=== PATIENT | male | born 1990 | race Caucasian/White ===

== ENCOUNTER 2021-01-02 12:01 | Emergency (ER) | payer BC ==
[~2021-01-02] VITALS: Ht 185.4 cm; Wt 78.0 kg
--- NOTE | ~2021-01-02 | EMS ---
[facility] [address] [place] [address] EMS Patient Care Report Name: SAVANNA MOSES Room #: DEP ETELVINA Tineo#: [id number] Admission: 01/02/21 Attend Phys: Discharge: 01/02/21 Date of : [birth year] Report #: [id number] THIS REPORT FOR: //name// Report Transmitted: 01/02/2021 20:30 EMS Care Summary [facility] MED-ACT Incident [id number] @ 01/02/2021 11:16 Incident Location [address] [place] [address] Patient SAVANNA MOSES Male, 30 Years 1990 Patient Address [address] [place] [address] Patient History Bipolar II Disorder, Patient Allergies No known allergies, Patient Medications None Reported, Chief Complaint "He had a seizure" per bystander Disposition Transported No Lights/[place] Reason Convulsions/Seizure Transported To [facility] Narrative M1133 responds C3 to report of possible seizure at a local psychiatrist's office. After unremarkable response phase, 1133 enters scene to find one pt, A&O, seated w/ [facility] personnel at his side. Pt's psychiatrist reports that the pt [facility] [address] [place] [address] EMS Patient Care Report Name: SAVANNA MOSES Room #: DEP ETELVINA Tineo#: [id number] Admission: 01/02/21 Attend Phys: Discharge: 01/02/21 Date of : [birth year] Report #: [id number] was at his office to undergo "TMS Mapping- Transcranial Magnetic Stimulation" for his hx of mental health issues. Staff state that they were stimulating a certain portion of the pt's brain and were noticing the expected movements of the pt's thumb. They state that the pt then reported that he was light-headed, and proceeded to become unconscious and seize. Staff report full body seizure activity for approximately one minute before the pt regained consciousness, with little to no postictal period. Pt reports no hx of seizure disorder and denies pain of any kind. Pt is found to initially be slightly bradycardic and slightly hypotensive. Pt reports no hx of vasovagal episodes at the dentist or with pain. Pt denies hx of diabetes and denies use of drugs or alcohol. Pt states that he feels better now, but is still slightly weak. Pt requests transport to [facility] which is executed without incident. M1133 clears and returns to service. 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 [address] [place] [address] EMS Patient Care Report Name: SAVANNA MOSES Room #: DEP Noman#: [id number] Admission: 01/02/21 Attend Phys: Discharge: 01/02/21 Date of : [birth year] Report #: [id number] 11:48,Depart Scene 11:51,BP: / M,PULSE: 45,RR: R,SPO2: 100 Ox,ETCO2: ,BG: ,PAIN: ,GCS: , 11:54,BP: 132/89 M,PULSE: 54,RR: R,SPO2: 100 Ox,ETCO2: ,BG: ,PAIN: ,GCS: , 11:55,At Destination 12:12,Call Closed Disclaimer v1.1 Copyright 2020 [employer] This EMS Care Summary contains data elements from the applicable legal record (which may be displayed differently). It is designed to provide pertinent information for the following purposes: continuity of care, clinical quality, and state data reporting. The complete legal record is available to ED staff and administrators of the receiving hospital in [employer]'s Patient Tracker. All data is provided "as is."
[2021-01-02 13:07] LABS: CALCIUM 9.4 mg/dL (8.5-10.1); CREATININE 1.1 mg/dL (0.7-1.3); POTASSIUM 4.7 mmol/L (3.5-5.1)
[2021-01-02 13:40] LABS: ABSOLUTE NEUTROPHILS 1.6 thou/uL (1.4-8.2); BASOPHILS 1.8 % (0.0-2.0); EOSINOPHILS 4.5 % (0.0-3.0); HEMATOCRIT 45.2 % (42.0-52.0); HEMOGLOBIN 15.5 gm/dL (14.0-18.0); LYMPHOCYTES 42.8 % (24.0-44.0); MCH 33.7 pg (26.0-34.0); MCHC 34.4 g/dL (28.0-37.0); MCV 98.2 fL (80.0-100.0); MONOCYTES 9.3 % (1.0-8.0); PLATELET COUNT 196 thou/uL (150-400); POLYS 41.6 % (36.0-66.0); RDW 12.4 % (10.5-14.5)
--- NOTE | 2021-01-02 13:40 | EKG ---
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 : 1990 Requested By: Kj Monson Order Number: [id number] MD: Hemanth Godinez Measurements Intervals [place] Rate: 52 P: 32 CO: 172 QRS: 54 QRSD: 98 T: 34 QT: 435 QTc: 405 Interpretive Statements Sinus rhythm RSR' in V1 or V2, probably normal variant ST elev, probable normal early repol pattern No previous ECG available for comparison Electronically Signed On 01-02-2021 13:39:48 CDT by Hemanth Godinez [email or web address] <ELECTRONICALLY SIGNED> By: Hemanth Godinez MD, [facility] 01/02/21 1339 1209 1209 Hemanth Godinez MD, FACC /EPI
[2021-01-02 14:10] VITALS: BP 122/62
== END 2021-01-02 14:11 | disposition home or self-care (01) ==
LOC: ER 12:01
PROVIDERS: Emergency Medicine
DX: R55 Syncope and collapse (principal)